=== PATIENT | female | born 1955 | race African-American/Black ===

== ENCOUNTER 2017-03-22 09:27 | Emergency (ER) | payer OTHER ==
[~2017-03-22] VITALS: Ht 154.9 cm; Wt 75.0 kg
[~2017-03-22 09:27] MED LIST: AMIT25TA9 PO; ASPI81TA2 PO; GLIP10TA9 PO; LISI20TA PO; METF10002 PO; TRAM50TA4 PO
[2017-03-22 09:42] LABS: GLUCOSE,POINT OF CARE 219 MG/DL (70-110)
[2017-03-22 13:27] LABS: GLUCOSE,POINT OF CARE 101 MG/DL (70-110)
[2017-03-22 13:35] VITALS: BP 137/77
== END 2017-03-22 13:37 | disposition home or self-care (01) ==
LOC: EMS 09:29
DX: M53.3 Sacrococcygeal disorders, not elsewhere classified (principal); E11.9 Type 2 diabetes mellitus without complications; I10 Essential (primary) hypertension; F17.200 Nicotine dependence, unspecified, uncomplicated
CPT/HCPCS: 82962; 99282